=== PATIENT | female | born 1995 | race Caucasian/White ===

== ENCOUNTER 2017-04-04 22:09 | Emergency (ER) | payer SELFPAY ==
[~2017-04-04] VITALS: Ht 167.6 cm; Wt 55.0 kg
[2017-04-04 22:10] VITALS: BP 115/80; PULSE 100; RESP 16; TEMP 97.6; O2SAT 100
[2017-04-04] MEDS ORDERED: KETOROLAC TROMETHAMINE 60 MG/2 ML (IM) VIAL IM ONE (23:45)
--- NOTE | 2017-04-04 23:46 | PD ---
HPI Chief Complaint: Respiratory Symptoms Time Seen by Provider: 11:30 Travel History International Travel<30 days: No Contact w/Intl Traveler<30days: No Traveled to known affect area: No History of Present Illness HPI This patient was examined in the presence of nurse. 21-year-old female presents for evaluation of chest pain. She reports that symptoms started 2 hours prior to arrival. She describes it as a aching pain in the center of her chest that lasted about 15-30 minutes and then resolved. She is currently not experiencing any chest pain. She reports that she had similar pain 1-2 times this month which lasted about 15 minutes each time. She says that nothing seems to make the pain better or worse. Denies any shortness of breath, cough or congestion, fevers or chills, lower extremity pain or edema, recent travel, recent surgery. She denies any drug, alcohol, tobacco use. She denies any oral contraceptive use. Her last measure. With 1.5 weeks ago. She denies any chance of because she is not currently sexually active. She endorses a past medical history of anxiety. Denies any other medical history. She has no other complaints. [facility] Past Medical History Anxiety: Yes Diminished Hearing: No Tetanus Vaccination: Unknown Influenza Vaccination: No ?: Not LMP: 03/27/17 Past Surgical History Other Surgery: Yes (STENT PLACED IN KIDNEY) Social History Alcohol Use: Yes (1X MONTH) Tobacco Use: No Substance Use: No Allergies-Medications (Allergen,Severity, Reaction): Coded Allergies: Triaminic (Verified Allergy, Severe, 04/04/17) Reported Meds & Prescriptions Reported Meds & Active Scripts Active No Active Prescriptions or Reported Medications Review of Systems Except as stated in HPI: all other systems reviewed are Neg Physical Exam Narrative GENERAL: Well-developed well-nourished female in no acute distress resting complaint hospital bed. Vital signs reviewed. SKIN: Warm and dry. HEAD: Atraumatic. Normocephalic. EYES: Pupils equal and round. No scleral icterus. No injection or drainage. ENT: No nasal bleeding or discharge. Mucous membranes pink and moist. NECK: Trachea midline. No JVD. CARDIOVASCULAR: Regular rate and rhythm. No murmur appreciated. RESPIRATORY: No accessory muscle use. Clear to auscultation. Breath sounds equal bilaterally. No crackles, wheezing, rhonchi GASTROINTESTINAL: Abdomen soft, non-tender, nondistended. Hepatic and splenic margins not palpable. No guarding. MUSCULOSKELETAL: No obvious deformities. No edema. No tenderness to palpation of the chest wall. NEUROLOGICAL: Awake and alert. No obvious cranial nerve deficits. Motor grossly within normal limits. Normal speech. Data Data Last Documented VS Vital Signs Date Time Temp Pulse Resp B/P Pulse Ox O2 Delivery O2 Flow Rate FiO2 04/04/17 22:10 97.6 100 16 115/80 100 Orders Electrocardiogram (04/04/17 23:37) Chest, Single Ap (04/04/17 23:37) Ketorolac Inj (Toradol Inj) (04/04/17 23:45) MDM Medical Decision Making Medical Screen Exam Complete: Yes Emergency Medical Condition: Yes Medical Record Reviewed: Yes Interpretation(s) EKG reveals sinus rhythm with a rate of 84. Differential Diagnosis Anxiety, pleurisy, pulmonary embolism, spontaneous pneumothorax, pericarditis, myocarditis, aortic dissection, acute coronary syndrome Narrative Course This is a 21-year-old female who reports a past medical history of anxiety who presents for evaluation of episodic chest pain. She reports 2-3 episodes in the past month of chest pain last approximately 15-30 minutes at a time. Currently experiencing no chest pain or shortness of breath. Examination is reassuring. No evidence of DVT. I considered pulmonary embolism the differential as the patient's heart rate was mildly elevated in triage at 100 and on recheck it is in the high 80s however this is not consistent with her history of episodic pain and her well's score is exceedingly low at 1.5. The patient was given Toradol. Chest x-ray and EKG were performed. Chest x-ray and EKG are essentially unremarkable. Upon recheck examination the patient continues to be asymptomatic. Recommended outpatient follow-up with primary care physician. She is stable for discharge. Procedures EKG Prior to Arrival: Yes Diagnosis Primary Impression: Chest pain of unknown etiology Additional Instructions: Follow-up closely with primary care physician. Return for any acutely new or worsening symptoms such as persistent chest pain, shortness of breath, high fevers Med/Other Pt SpecificInfo: No Change to Meds Scripts No Active Prescriptions or Reported Meds Disposition: DISCHARGE HOME Condition: Stable Tomer Bravo April 04, 2017 23:46
--- NOTE | 2017-04-05 00:01 | RADRPT ---
EXAM DATE/TIME: 04/04/2017 23:53 [facility] COMPARISON: No previous studies available for comparison. INDICATIONS : Chest pain. MEDICAL HISTORY : None. SURGICAL HISTORY : None. ENCOUNTER: Initial ACUITY: 1 day PAIN SCORE: 0/10 LOCATION: Bilateral chest FINDINGS: A single view of the chest demonstrates the lungs to be symmetrically aerated without evidence of mas s, infiltrate or effusion. The cardiomediastinal contours are unremarkable. Osseous structures are intact. CONCLUSION: Normal examination. Clinton Austin Jr., MD on April 04, 2017 at 23:59 Board Certified Radiologist. This report was verified electronically.
--- NOTE | 2017-04-05 19:45 | EKG ---
Date Performed: 04/04/2017 Time Performed: 23:49:31 PTAGE: 21 years EKG: ECTOPIC ATRIAL RHYTHM NONSPECIFIC T-WAVE ABNORMALITY ABNORMAL RHYTHM ECG NO PREVIOUS TRACING DOCTOR: Edith Mejia Interpretating Date/Time 04/05/2017 19:44:54
== END 2017-04-05 01:00 | disposition home or self-care (01) ==
LOC: NEPD 22:09
DX: R07.9 Chest pain, unspecified (principal); R94.31 Abnormal electrocardiogram [ECG] [EKG]
CPT/HCPCS: 71010; 93005; 96372; 99283; J1885